=== PATIENT | male | born 1995 | race Caucasian/White ===

== ENCOUNTER 2019-06-28 19:31 | Emergency (ER) | payer OTHER ==
--- NOTE | 2019-06-28 20:18 | EDM.PDOC ---
<Clarissa Richards - Last Filed: 06/28/19 20:08> ED HPI GENERAL MEDICAL PROBLEM - General Chief Complaint: Respiratory Problem Stated Complaint: COUGH CONGESTION FEVER Time Seen by Provider: 06/28/19 20:00 Source of Information: Reports: Patient History Limitations: Reports: No Limitations - History of Present Illness INITIAL COMMENTS - FREE TEXT/NARRATIVE: Puneet is a pleasant 23 year old male who presents to the ED c/o of sinus pressure and a productive cough. He states this started suddenly on Thursday and has gotten progressively worse. He was seen yesterday at [facility] and reports both the strep and influenza swab were negative. His sputum is bright green. The pressure in his head becomes worse when he leans forwards. He denies fever, chills, sweats/night sweats, nausea, vomiting and diarrhea. He does have a 2 pack year smoking history and reports having asthma as a child but he has out grown it. - Related Data Allergies Allergy/AdvReac Type Severity Reaction Status Date / Time No Known Allergies Allergy Verified 06/28/19 20:37 Home Meds: Home Meds Codeine Phosphate/Guaifenesin [Guaifen-Codeine 200-20 mg/10Ml] 10 ml PO ASDIRECTED PRN #120 ml 06/28/19 [Rx] Past Medical History Psychiatric History: Reports: Bipolar - Past Surgical History HEENT Surgical History: Reports: Oral Surgery, Other (See Below) Other HEENT Surgeries/Procedures: dental implant under anesthesia Social & Family History - Tobacco Use Smoking Status *Q: Current Every Day Smoker (pack a day x 2 years) - Caffeine Use Caffeine Use: Reports: Coffee, Energy Drinks, Soda ED ROS GENERAL - Review of Systems Review Of Systems: See Below Constitutional: Reports: No Symptoms HEENT: Reports: Sinus Problem Respiratory: Reports: Cough, Sputum Cardiovascular: Reports: No Symptoms Endocrine: Reports: No Symptoms GI/Abdominal: Reports: No Symptoms : Reports: No Symptoms Musculoskeletal: Reports: No Symptoms Skin: Reports: No Symptoms Neurological: Reports: No Symptoms Psychiatric: Reports: No Symptoms Hematologic/Lymphatic: Reports: No Symptoms Immunologic: Reports: No Symptoms ED EXAM, GENERAL - Physical Exam Exam: See Below Exam Limited By: No Limitations General Appearance: Alert, WD/WN, No Apparent Distress Ears: Normal External Exam, Normal Canal, Hearing Grossly Normal, Normal TMs Ear Exam: Bilateral Ear: Auricle Normal, Canal Normal, TM normal Nose: Normal Mucosa, No Blood, Nasal Swelling Throat/Mouth: Normal Inspection, Normal Lips, Normal Teeth, Normal Gums, Normal Voice, No Airway Compromise, Inflammation (edematous & erythematous tonsils bilaterally ) Head: Atraumatic, Normocephalic, Sinus Tenderness Neck: Normal Inspection, Supple, Non-Tender, Full Range of Motion Respiratory/Chest: No Respiratory Distress, Lungs Clear, Normal Breath Sounds, No Accessory Muscle Use, Chest Non-Tender Cardiovascular: Normal Peripheral Pulses, Regular Rate, Rhythm, No Edema, No Gallop, No JVD, No Murmur, No Rub GI/Abdominal: Normal Bowel Sounds, Soft, Non-Tender, No Organomegaly, No Distention, No Abnormal Bruit, No Mass Back Exam: Normal Inspection Extremities: Normal Inspection, Non-Tender, No Pedal Edema, Normal Capillary Refill Neurological: Alert, Oriented, Normal Cognition Psychiatric: Normal Affect, Normal Mood Skin Exam: Warm, Dry, Intact, Normal Color, No Rash Lymphatic: No Adenopathy Course - Vital Signs Last Recorded V/S: Last Vital Signs Temp 98.9 F 06/28/19 19:41 Pulse 79 06/28/19 19:41 Resp 16 06/28/19 19:41 BP 138/86 06/28/19 19:41 Pulse Ox 97 06/28/19 19:41 - Orders/Labs/Meds Orders: Active Orders 24 hr Category Date Time Status CULTURE STREP A CONFIRMATION [] Stat Lab 06/28/19 20:18 Results STREP SCRN A RAPID W CULT CONF [] Stat Lab 06/28/19 20:16 Ordered Departure - Departure Disposition: Home, Self-Care 01 Clinical Impression: Viral URI with cough Sinusitis, acute Qualifiers: Sinusitis location: unspecified location Recurrence: non-recurrent Qualified Code(s): J01.90 - Acute sinusitis, unspecified - Discharge Information Prescriptions: Codeine Phosphate/Guaifenesin [Guaifen-Codeine 200-20 mg/10Ml] 10 ml PO ASDIRECTED PRN #120 ml PRN Reason: Cough Instructions: Steps to Quit Smoking, [id number], Sinusitis, Adult, Easy-to- Read, How to Perform a Sinus Rinse, [id number] Referrals: PCP,None [Primary Care Provider] - Forms: ED Department Discharge, ED Return to Work/School Form Additional Instructions: You have been evaluated in the ED today for your cold like symptoms, cough, sore throat. This is likely a viral illness in etiology. Please increase your fluid intake. Get plenty of rest as well. You should feel better in a few days. Recommend that you take some [id number] nasal decongestants, cough/cold remedies to combat this. Medicines like NyQuil, DayQuil, phenylephrine and other sinus decongestants are adequate. Recommend that you use a nasal sinus rinse kit to also help relieve sinus/head congestion. You were given a prescription for some cough medicine, please take as directed. This was electronically sent to the [facility] in the [facility] grocery store. If your symptoms are not better in one week's time recommend that you follow up in a clinic or your primary care provider. Our [facility] clinic number is , the [place] [facility] is [phone]. Any [facility] [place] provider would be able to provide you with the services. Please return to the ED if your symptoms change or worsen. - My Orders Last 24 Hours: My Active Orders 06/28/19 20:16 STREP SCRN A RAPID W CULT CONF [RM] Stat 06/28/19 20:18 CULTURE STREP A CONFIRMATION [RM] Stat - Assessment/Plan Last 24 Hours: My Active Orders 06/28/19 20:16 STREP SCRN A RAPID W CULT CONF [RM] Stat 06/28/19 20:18 CULTURE STREP A CONFIRMATION [RM] Stat <Adenike Winters - Last Filed: 06/28/19 21:22> ED HPI GENERAL MEDICAL PROBLEM - History of Present Illness INITIAL COMMENTS - FREE TEXT/NARRATIVE: I have read and reviewed the student's HPI and examined the patient and agree with KLAUDIA Carrizales-student. ED ROS GENERAL - Review of Systems HEENT: Reports: Rhinitis, Throat Pain. Denies: Ear Pain ED EXAM, GENERAL - Physical Exam Nose: Nasal Swelling (bilateral injected turbinates) Neck: No: Lymphadenopathy (L), Lymphadenopathy (R) Course - Re-Assessments/Exams Free Text/Narrative Re-Assessment/Exam: 06/28/19 20:29 Patient presents to the ED for evaluation of upper respiratory symptoms. The course of this illness is suspicious for sinusitis in nature, however I believe this is more of a viral infection than bacterial due to this starting on Thursday. His tonsillar tissue was swollen, and he states this is painful, I will repeat the strep today. He is taking Mucinex for congestion, I will likely give other general recommendations for symptomatic relief such as Flonase, and nasal sinus rinses. 06/28/19 21:22 Patient's strep screen was negative, but will be sent for culture for confirmation, I suspect this to be negative as well. Patient will be discharged home with general recommendations and a prescription for some cough medicine. Departure - Departure Time of Disposition: 20:46 Condition: Fair - Discharge Information *PRESCRIPTION DRUG MONITORING PROGRAM REVIEWED*: No *COPY OF PRESCRIPTION DRUG MONITORING REPORT IN PATIENT HEATHER: No
== END 2019-06-28 21:29 | disposition home or self-care (01) ==
LOC: JD.ED 19:31
DX: J06.9 Acute upper respiratory infection, unspecified (principal); J01.90 Acute sinusitis, unspecified; F17.210 Nicotine dependence, cigarettes, uncomplicated
CPT/HCPCS: 87077; 87081; 87430; 99283

== ENCOUNTER 2020-03-18 13:55 | Emergency (ER) | payer OTHER ==
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
[2020-03-18 15:58] LABS: C. TRACHOMATIS BY PCR NOT DETECTED; N. GONORRHOEAE BY PCR NOT DETECTED
== END 2020-03-18 14:30 | disposition home or self-care (01) ==
LOC: JD.ED 13:55
DX: R30.0 Dysuria (principal)
CPT/HCPCS: 87491; 87591; 99283